=== PATIENT | male | born 2000 | race Caucasian/White ===

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

== ENCOUNTER 2020-03-27 16:41 | Observation (INO) ==
--- NOTE | 2020-03-27 16:53 | Emergency Department Note ---
Impression & Plan Acute appendicitis, Abdominal pain ED Provider Note NAME: CHRISTY WALKER AGE: 19 SEX: M : 2000 ARRIVES VIA: Walk-In INFORMANT: Patient ED PROVIDER(S): Anthony Cali DO CHIEF COMPLAINT: Right mid abdominal pain HPI: Patient is a 19-year-old male who presents the ER for right mid abdominal pain which started this past Monday. He notes it has been gradually improving. Initially he did not want to eat or drink with it. Last bowel movement was within the past 24 hours. No previous abdominal surgeries. He denies any dysuria urgency or frequency. Movement makes the pain worse as well as palpation. Pain is a 2 out of 10. He was referred in by his physician. Denies any recent trauma. No other exacerbating or remitting factors. ROS: See above HPI for pertinent positives & negatives. A total of 10 systems reviewed and were otherwise negative. PAST MEDICAL HISTORY:See Below PAST SURGICAL HISTORY:See Below FAMILY HISTORY:See Below SOCIAL HISTORY:See Below HOME MEDICATIONS:See Below ALLERGIES:See Below VITALS:See Below PHYSICAL EXAMINATION: GENERAL: Sitting up in chair, alert, well appearing, well nourished, no distress, non-toxic EYE EXAM: normal conjunctiva. OROPHARYNX: no exudate, no erythema, lips, buccal mucosa, and tongue normal and mucous membranes are moist NECK: supple, no nuchal rigidity, no adenopathy, non-tender LUNGS: Clear to auscultation. Normal chest wall mechanics HEART: no murmurs, S1 normal and S2 normal ABDOMEN: abdomen soft, mild right mid abdominal pain, normo-active bowel sounds, no masses, no rebound or guarding. BACK: Back is symmetrical on inspection and there is no deformity, no midline tenderness, no CVA tenderness. SKIN: no rashes and no bruising UPPER EXTREMITIES: upper extremities are grossly normal. LOWER EXTREMITIES: No pitting edema. NEURO EXAM: Normal sensorium, cranial nerves II-XII grossly intact, normal speech, no gross weakness of arms, no gross weakness of legs. MEDICAL DECISION MAKING: Patient is a 19-year-old male referred in for right mid abdominal pain which is been present since this past Monday. IV was established blood work was obtaine d. Labs show no significant leukocytosis or anemia. BMP along with LFTs bilirubin and lipase was unremarkable. UA was negative. CT abdomen pelvis shows acute appendicitis. Patient was updated bedside. He was given IV fluids. He was given IV morphine and Zofran and cefoxitin. Discussed with general surgery and patient was admitted for acute appendicitis. Triage Nursing notes reviewed. Prior medical records reviewed Vital Signs: reviewed and remarkable for no significant abnormalities Differential diagnosis: Differential diagnoses includes but is not limited to gastritis, peptic ulcer disease, GERD, gallbladder disease, pancreatitis, small bowel obstruction, acute coronary syndrome, pericarditis, ischemic bowel, irritable bowel disease, irritable bowel syndrome, appendicitis, diverticulitis, malignancy, hernia, urinary tract infection, torsion, perforation, trauma, infectious. ER treatment provided: See below Diagnostics interpreted by me: ECG: none Cardiac Monitoring: An order was placed for continuous cardiac monitoring. The monitor shows a rate of 74 with sinus rhythm. Laboratory studies: As stated above and show below. Imaging studies: CT abdomen pelvis shows acute appendicitis Consultation(s): Discussed with Dr. Moisés Ceballos from general surgery who evaluated the patient and admitted the patient. ED COURSE: Procedures: none Critical Care: None Past Med/Surg History Surgical History Mandible fracture Tibia/fibula fracture Social History Smoking Status: Never smoker Feels Safe at Home: Yes Allergies Allergies Allergy/AdvReac Type Severity Reaction Status Date / Time No Known Allergies Allergy Unverified 03/27/20 20:33 Home Meds Home Medications Medication Instructions Recorded Confirmed Medical Marijuana 0 puff INHALATION UD PRN 03/27/20 03/27/20 Otc Prilosec 20 mg PO DAILY PRN 03/27/20 03/27/20 Results & Data (ED) Vital Signs Vital Signs - 24 hr 03/27/20 16:42 03/27/20 18:07 03/27/20 20:00 Temperature 37 C Temperature Source Oral Pulse Rate 90 Pulse Rate [Right Finger] 56 L Respiratory Rate 18 15 Respiratory Effort / Characteristics Non-Labored Respiratory Depth Normal Blood Pressure 129/78 Blood Pressure [Right Arm] 136/89 Blood Pressure Mean 95 Blood Pressure Mean [Right Arm] 104 Pulse Oximetry 97 96 97 Oxygen Delivery Method Room Air Room Air Room Air Sepsis Recent Fever Within 48 Hours No Sepsis New/Unexplained Change in Mental Status No Sepsis Action Taken by Nursing No Action Required 03/27/20 20:10 03/27/20 21:34 03/27/20 22:20 Temperature Temperature Source Pulse Rate Pulse Rate [Right Finger] 80 72 60 Respiratory Rate 16 20 20 Respiratory Effort / Characteristics Non-Labored Spontaneous Respiratory Depth Normal Blood Pressure Blood Pressure [Right Arm] 130/81 151/96 H 130/84 Blood Pressure Mean Blood Pressure Mean [Right Arm] 97 114 99 Pulse Oximetry 97 100 98 Oxygen Delivery Method Room Air Room Air Room Air Sepsis Recent Fever Within 48 Hours Sepsis New/Unexplained Change in Mental Status Sepsis Action Taken by Nursing 03/27/20 22:43 Temperature Temperature Source Pulse Rate Pulse Rate [Right Finger] 72 Respiratory Rate 20 Respiratory Effort / Characteristics Respiratory Depth Blood Pressure Blood Pressure [Right Arm] 127/78 Blood Pressure Mean Blood Pressure Mean [Right Arm] 94 Pulse Oximetry 98 Oxygen Delivery Method Room Air Sepsis Recent Fever Within 48 Hours Sepsis New/Unexplained Change in Mental Status Sepsis Action Taken by Nursing Laboratory Data Result diagrams: 03/27/20 17:45 03/27/20 17:45 Lab Results 03/27/20 03/27/20 03/27/20 Range/Units 17:45 17:45 18:45 WBC 7.83 (4.8-10.8) K/uL RBC 5.00 (4.7-6.1) M/uL Hgb 14.8 (14.0-18.0) g/dL Hct 44.2 (42-52) % MCV 88.4 (80-100) fL MCH 29.6 (25-34) pg MCHC 33.5 (32-36) g/dL RDW Std Deviation 43.2 (36.4-46.3) fL RDW Coeff of Martine 13.3 (11.5-14.5) % Plt Count 176 (130-400) K/uL MPV 10.6 H (7.4-10.4) fL Immature Gran % (Auto) 0.3 % Neut % (Auto) 63.3 % Lymph % (Auto) 27.8 % [place] % (Auto) 7.5 % Eos % (Auto) 1.0 % Baso % (Auto) 0.1 % Neut # (Auto) 4.95 (1.4-6.5) K/uL Lymph # (Auto) 2.18 (1.2-3.4) K/uL [place] # (Auto) 0.59 (0.11-0.59) K/uL Eos # (Auto) 0.08 (0-0.5) K/uL Baso # (Auto) 0.01 (0-0.2) K/uL Immature Gran # (Auto) 0.02 (0.00-0.02) K/uL Sodium 138 (136-145) mmol/L Potassium 3.8 (3.5-5.1) mmol/L Chloride 103 (98-107) mmol/L Carbon Dioxide 30 (21-32) mmol/L Anion Gap 5.0 (3-11) BUN 15 (7-18) mg/dl Creatinine 1.11 (0.6-1.4) mg/dl Est Cr Clr Drug Dosing 95.7 ml/min Est GFR ( Amer) 109.4 Est GFR (Non-Af Amer) 94.4 BUN/Creatinine Ratio 13.3 (10-20) Glucose 84 (70-99) mg/dl Calcium 9.7 (8.5-10.1) mg/dl Total Bilirubin 0.5 (0.2-1) mg/dl AST 23 (15-37) U/L ALT 35 (12-78) U/L Alkaline Phosphatase 55 (45-117) U/L Total Protein 8.3 H (6.4-8.2) gm/dl Albumin 4.5 (3.4-5.0) gm/dl Globulin 3.8 (2.5-4.0) gm/dl Albumin/Globulin Ratio 1.2 (0.9-2) Lipase 108 (73-393) U/L Urine Color Yellow Urine Appearance Clear (Clear) Urine pH 6.5 (4.5-7.5) Ur Specific [place] 1.022 (1.000-1.030) Urine Protein Negative (Negative) Urine Glucose (UA) Negative (Negative) Urine Ketones Negative (Negative) Urine Blood Negative (Negative) Urine Nitrite Negative (Negative) Urine Bilirubin Negative (Negative) Urine Urobilinogen Negative (Negative) Ur Leukocyte Esterase Negative (Negative) Administered Medications Discontinued Medications Sodium Chloride (Nss 1000ml) 1,000 mls @ 999 mls/hr IV .Q1H1M ONE Stop: 03/27/20 17:55 Last Admin: 03/27/20 18:43 Dose: Not Given Documented by: [id number] Cefoxitin Sodium (Mefoxin) 2,000 mg in 60 mls @ 100 mls/hr IV NOW STA Stop: 03/27/20 21:33 Last Infusion: 03/27/20 22:09 Dose: 0 mls/hr Documented by: [id number] Admin: 03/27/20 21:32 Dose: 100 mls/hr Documented by: [id number] Ioversol (Optiray 320 100ml) 93 ml IV ONCE ONE Stop: 03/27/20 20:44 Last Admin: 03/27/20 20:43 Dose: 93 ml Documented by: [id number] Morphine Sulfate (Morphine Sulfate) 4 mg IV NOW STA Stop: 03/27/20 21:50 Last Admin: 03/27/20 21:53 Dose: 4 mg Documented by: [id number] Ondansetron HCl (Zofran) 4 mg IV NOW STA Stop: 03/27/20 21:50 Last Admin: 03/27/20 21:52 Dose: 4 mg Documented by: [id number] Discharge Plan Visit Data *Final* Discharge Date/Time: 03/27/20 22:45 Chief Complaint: Abdominal Pain Stated Complaint: Abdominal Pain ED Provider: Anthony Cali Discharge Problem: Acute appendicitis, Abdominal pain Patient Disposition: Still a Patient Discharge Instructions Interventions: ED Discharge Assessment Last Done: 03/27/20 22:45 Discharge Problem: Acute appendicitis Qualifiers: Acute appendicitis type: unspecified acute appendicitis type Qualified Code(s): K35.80 - Unspecified acute appendicitis Abdominal pain Qualifiers: Abdominal location: unspecified location Qualified Code(s): R10.9 - Unspecified abdominal pain
[2020-03-27] MEDS ORDERED: SODIUM CHLORIDE 0.9% 1000ML 1,000 ML IV ONE (16:55)
[2020-03-27 18:01] LABS: Basophils # (auto) 0.01 K/uL (0-0.2); Basophils % (auto) 0.1 %; Eosinophils # (auto) 0.08 K/uL (0-0.5); Hematocrit (blood only) 44.2 % (42-52); Hemoglobin 14.8 g/dL (14.0-18.0); Immature Granulocytes # (auto) 0.02 K/uL (0.00-0.02); Immature Granulocytes % (auto) 0.3 %; Lymphocytes # (auto) 2.18 K/uL (1.2-3.4); Lymphocytes % (auto) 27.8 %; Mean Corpuscular Hemoglobin 29.6 pg (25-34); Mean Corpuscular Hgb Conc 33.5 g/dL (32-36); Mean Corpuscular Volume 88.4 fL (80-100); Mean Platelet Volume 10.6 fL (7.4-10.4); Monocytes # (auto) 0.59 K/uL (0.11-0.59); Monocytes % (auto) 7.5 %; Neutrophils # (auto) 4.95 K/uL (1.4-6.5); Neutrophils % (auto) 63.3 %; Platelet Count 176 K/uL (130-400); RDW Coefficient of Variation 13.3 % (11.5-14.5); RDW Standard Deviation 43.2 fL (36.4-46.3); White Blood Count 7.83 K/uL (4.8-10.8)
[2020-03-27 18:17] LABS: Albumin Level 4.5 gm/dl (3.4-5.0); BUN Creatinine Ratio 13.3 (10-20); Calcium 9.7 mg/dl (8.5-10.1); Creatinine Clr Calc Pharmacy 95.7 ml/min; Est GFR (African American) 109.4; Est GFR (Non-African American) 94.4; Potassium 3.8 mmol/L (3.5-5.1)
[2020-03-27 18:20] LABS: Albumin Globulin Ratio 1.2 (0.9-2); Bilirubin,Total 0.5 mg/dl (0.2-1); Globulin 3.8 gm/dl (2.5-4.0); Total Protein 8.3 gm/dl (6.4-8.2)
[2020-03-27 20:33] LABS: Appearance Urine Clear (Clear); Bilirubin Urine Negative (Negative); Blood Urine Negative (Negative); Color Urine Yellow; Glucose Urine UA Negative (Negative); Ketones Urine Negative (Negative); Leukocyte Esterase Urine Negative (Negative); Nitrite Urine Negative (Negative); Protein Urine Negative (Negative); Specific Gravity Urine 1.022 (1.000-1.030); Urobilinogen Urine Negative (Negative); pH Urine 6.5 (4.5-7.5)
[2020-03-27] MEDS ORDERED: IOVERSOL 100ml IV ONE (20:43)
--- NOTE | 2020-03-27 20:56 | CT Scan Report ---
CT abd pelvis oral and IV con CLINICAL HISTORY: Right-sided abdominal pain COMPARISON STUDY: March 2017 TECHNIQUE: Patient was scanned following administration of dilute oral contrast, and in a dynamic hel ical fashion during intravenous administration of 94 cc of Optiray 320. A dose lowering technique was utilized adhering to the principles of ALARA. CT DOSE: 255.92 mGy.cm FINDINGS: Lower chest: The heart is normal in size and configuration, without pericardial effusion. The lung ba ses and pleural spaces are clear. Liver: The contrast-enhanced liver is normal in size, contour, and attenuation. There is no intrahepa tic biliary ductal dilatation. The hepatic veins and portal veins are patent. Gallbladder: Unremarkable. Spleen: Normal in size and attenuation. Pancreas: Unremarkable. Adrenal glands: Unremarkable. Kidneys: There is symmetric renal cortical enhancement. The kidneys are normal in size without hydron ephrosis. Bowel: There are no transition zones indicate bowel obstruction. There is no evidence of acute divert iculitis. There is a mildly dilated fluid-filled appendix measuring 8 mm with minimal periappendiceal inflammatory change. Given history of right-sided abdominal pain, the findings are indicative of an early acute appendicitis Peritoneum: There is no intraperitoneal free air or abdominal ascites. Vasculature: The abdominal aorta is normal in course and caliber. Adenopathy: None. Pelvic viscera: There is mild bladder wall thickening. Skeletal structures: No destructive osseous lesions are seen. IMPRESSION: 1. Mildly dilated fluid-filled appendix measuring 8 mm with minimal periappendiceal inflammatory cr ge. Given the history right-sided abdominal pain, the findings are indicative of an early acute appen dicitis. ACT 112: Negative or not required by law. Electronically signed by: Kavin Gillespie M.D. 03/27/2020 8:55 PM
[2020-03-27] MEDS ORDERED: cefOXitin 2,000 MG/60 ML BAG IV STA (20:58)
[2020-03-27] MEDS ORDERED: MoRPHine SULFATE 4 MG/ML 1 ML CARP\\VIAL IV STA (21:49)
[2020-03-27] MEDS ORDERED: ONDANSETRON INJ 2 MG/ML 2 ML VIAL IV STA (21:49)
--- NOTE | 2020-03-27 22:24 | History & Physical Report ---
Date of Service March 27, 2020 Assessment & Plan (1) Appendicitis: This patient's history, physical findings and CT findings are consistent with appendicitis. I have discussed with him the options of antibiotics versus a laparoscopic appendectomy. I explained the possible need to convert to an open procedure. I explained the possible complications associated with those procedures. We discussed the pros and cons of antibiotic therapy. The patient wishes to go ahead with surgery and has signed a consent form. History of Present Illness Chief Complaint: Right lower quadrant abdominal pain with nausea Primary Care Provider: Jorge Reed This is a 19-year-old male who began to have discomfort centrally in his abdomen about 3 days ago. It was mild and a dull ache-like sensation. He has had some nausea but no vomiting. The pain became less severe 2 days ago and yesterday MORNING it seemed to migrate to the right lower quadrant where it has been located for the last 10 to 12 hours. It is exacerbated by motion. He has not had any diarrhea or constipation. He denies melena hematochezia. He has had no dysuria or hematuria. He has not had fever. Allergies Allergy/AdvReac Type Severity Reaction Status Date / Time No Known Allergies Allergy Unverified 03/27/20 20:33 Home Medications Home Medications Medication Instructions Recorded Confirmed Type Medical Marijuana 0 puff INHALATION UD PRN 03/27/20 03/27/20 History Otc Prilosec 20 mg PO DAILY PRN 03/27/20 03/27/20 History Past Med/Surg History Surgical History (Updated 03/27/20 @ 22:29 by Moisés Ceballos MD) Mandible fracture Tibia/fibula fracture Social History Smoking Status: Never smoker Feels Safe at Home: Yes Review of Systems Review of Systems: All systems reviewed & are unremarkable except as noted in HPI & below Physical Exam Constitutional: well developed and well nourished Neck: trachea midline Respiratory: normal respiratory effort, lungs clear to auscultation Cardiovascular: Rate/Rhythm: regular rate and regular rhythm Gastrointestinal (Abdomen): Percussion/Palpation: + abdomen tender (Mild right lower quadrant) and abdomen soft; no abdominal mass Musculoskeletal: no cyanosis or clubbing, extremities motor strength 5/5 Skin: no rashes, warm and dry Results & Data Results & Data ([facility]) Vital Signs (Past 12 Hours) Vital Signs Temp Pulse Pulse Resp BP BP Pulse Ox 03/27/20 21:34 72 20 151/96 H 100 03/27/20 20:10 80 16 130/81 97 03/27/20 18:07 56 L 15 136/89 96 03/27/20 16:42 37 C 90 18 129/78 97 Laboratory Results 03/27/20 03/27/20 03/27/20 Range/Units 18:45 17:45 17:45 WBC 7.83 (4.8-10.8) K/uL RBC 5.00 (4.7-6.1) M/uL Hgb 14.8 (14.0-18.0) g/dL Hct 44.2 (42-52) % MCV 88.4 (80-100) fL MCH 29.6 (25-34) pg MCHC 33.5 (32-36) g/dL RDW Std Deviation 43.2 (36.4-46.3) fL RDW Coeff of Martine 13.3 (11.5-14.5) % Plt Count 176 (130-400) K/uL MPV 10.6 H (7.4-10.4) fL Immature Gran % (Auto) 0.3 % Neut % (Auto) 63.3 % Lymph % (Auto) 27.8 % [place] % (Auto) 7.5 % Eos % (Auto) 1.0 % Baso % (Auto) 0.1 % Neut # (Auto) 4.95 (1.4-6.5) K/uL Lymph # (Auto) 2.18 (1.2-3.4) K/uL [place] # (Auto) 0.59 (0.11-0.59) K/uL Eos # (Auto) 0.08 (0-0.5) K/uL Baso # (Auto) 0.01 (0-0.2) K/uL Immature Gran # (Auto) 0.02 (0.00-0.02) K/uL Sodium 138 (136-145) mmol/L Potassium 3.8 (3.5-5.1) mmol/L Chloride 103 (98-107) mmol/L Carbon Dioxide 30 (21-32) mmol/L Anion Gap 5.0 (3-11) BUN 15 (7-18) mg/dl Creatinine 1.11 (0.6-1.4) mg/dl Est Cr Clr Drug Dosing 95.7 ml/min Est GFR ( Amer) 109.4 Est GFR (Non-Af Amer) 94.4 BUN/Creatinine Ratio 13.3 (10-20) Glucose 84 (70-99) mg/dl Calcium 9.7 (8.5-10.1) mg/dl Total Bilirubin 0.5 (0.2-1) mg/dl AST 23 (15-37) U/L ALT 35 (12-78) U/L Alkaline Phosphatase 55 (45-117) U/L Total Protein 8.3 H (6.4-8.2) gm/dl Albumin 4.5 (3.4-5.0) gm/dl Globulin 3.8 (2.5-4.0) gm/dl Albumin/Globulin Ratio 1.2 (0.9-2) Lipase 108 (73-393) U/L Urine Color Yellow Urine Appearance Clear (Clear) Urine pH 6.5 (4.5-7.5) Ur Specific [place] 1.022 (1.000-1.030) Urine Protein Negative (Negative) Urine Glucose (UA) Negative (Negative) Urine Ketones Negative (Negative) Urine Blood Negative (Negative) Urine Nitrite Negative (Negative) Urine Bilirubin Negative (Negative) Urine Urobilinogen Negative (Negative) Ur Leukocyte Esterase Negative (Negative) Diagnostic Findings CT abd pelvis oral and IV con CLINICAL HISTORY: Right-sided abdominal pain COMPARISON STUDY: March 2017 TECHNIQUE: Patient was scanned following administration of dilute oral contrast, and in a dynamic helical fashion during intravenous administration of 94 cc of Optiray 320. A dose lowering technique was utilized adhering to the principles of ALARA. CT DOSE: 255.92 mGy.cm FINDINGS: Lower chest: The heart is normal in size and configuration, without pericardial effusion. The lung bases and pleural spaces are clear. Liver: The contrast-enhanced liver is normal in size, contour, and attenuation. There is no intrahepatic biliary ductal dilatation. The hepatic veins and portal veins are patent. Gallbladder: Unremarkable. Spleen: Normal in size and attenuation. Pancreas: Unremarkable. Adrenal glands: Unremarkable. Kidneys: There is symmetric renal cortical enhancement. The kidneys are normal in size without hydronephrosis. Bowel: There are no transition zones indicate bowel obstruction. There is no evidence of acute diverticulitis. There is a mildly dilated fluid-filled appendix measuring 8 mm with minimal periappendiceal inflammatory change. Given history of right-sided abdominal pain, the findings are indicative of an early acute appendicitis Peritoneum: There is no intraperitoneal free air or abdominal ascites. Vasculature: The abdominal aorta is normal in course and caliber. Adenopathy: None. Pelvic viscera: There is mild bladder wall thickening. Skeletal structures: No destructive osseous lesions are seen. IMPRESSION: 1. Mildly dilated fluid-filled appendix measuring 8 mm with minimal periappendiceal inflammatory change. Given the history right-sided abdominal pain, the findings are indicative of an early acute appendicitis.
[2020-03-27] MEDS ORDERED: CEFAZOLIN 250 MG/ML 1 GM VIAL ONE (22:43)
[2020-03-27] MEDS ORDERED: HEPARIN (PORCINE) 1000 UNIT/ML 10 ML (CATH LAB USE ONLY) ONE (22:43)
[2020-03-27] MEDS ORDERED: BUPIVACAINE 0.5 % 5 MG/1 ML MPF 30ML VIAL ONE (22:43)
--- NOTE | 2020-03-27 23:06 | Anesthesiology Consultation ---
Date of Service March 27, 2020 Assessment & Plan ASA [id number] Proposed Anesthesia Anesthesia Type: General Risk / Benefits Reviewed With: PT / POA / Parent / Guardian, Accepts Plan and Informed Consent Obtained History Surgery Operation Date: 03/27/20 23:00 Proposed Procedures p Laparoscopic Appendectomy - Moisés Ceballos MD Height/Weight Height: 5 ft 11 in Weight: 64.3 kg Allergies Allergy/AdvReac Type Severity Reaction Status Date / Time No Known Allergies Allergy Unverified 03/27/20 20:33 Medications Home Medications Medication Instructions Recorded Confirmed Last Taken Medical Marijuana 0 puff INHALATION UD PRN 03/27/20 03/27/20 Unknown Otc Prilosec 20 mg PO DAILY PRN 03/27/20 03/27/20 Unknown NPO Date Last Intake of Fluids: 03/27/20 Time Last Intake of Fluids: 19:00 Date Last Intake of Solids: 03/27/20 Time Last Intake of Solids: 12:00 Exercise / Class Metabolic Activity II 4-5 Yardwork/Stairs/Walk up hill Past Surgical History Surgical History Mandible fracture Tibia/fibula fracture Past Anesthesia History No Hx of Anesthesia Complications and No Family Hx of Anesthesia Complications History of PONV No Hx of PONV and No Hx of Motion Sickness Social History Smoking Status: Never smoker Review of Systems denies fever/cough/ colds/ chest pain/ SOB/ BECKIE Constitutional: no fever and no chills Respiratory: no cough and no dyspnea denies B[place]KIE Cardiovascular: no chest pain and no dyspnea on exertion Physical Exam Vital Signs Last Vital Signs Temp 37 C 03/27/20 16:42 Pulse 72 03/27/20 22:43 Resp 20 03/27/20 22:43 BP 127/78 03/27/20 22:43 Pulse Ox 98 03/27/20 22:43 ENMT Mouth: no TMJ abnormality and no dentition abnormality Thyromental Distance: > or= 3.5 Finger Breadths Mallampati Class: II Neck neck extension not limited Respiratory normal respiratory effort; no respiratory distress Auscultation: lungs clear to auscultation bilaterally Cardiovascular Rate/Rhythm: regular rate and regular rhythm Neurologic moves all extremities Psychiatric Orientation: alert and oriented x 3 Testing Laboratory Results 03/27/20 17:45 03/27/20 17:45 Urine Color Yellow 03/27/20 18:45 Urine Appearance Clear (Clear) 03/27/20 18:45 Urine pH 6.5 (4.5-7.5) 03/27/20 18:45 Ur Specific [place] 1.022 (1.000-1.030) 03/27/20 18:45 Urine Protein Negative (Negative) 03/27/20 18:45 Urine Glucose (UA) Negative (Negative) 03/27/20 18:45 Urine Ketones Negative (Negative) 03/27/20 18:45 Urine Nitrite Negative (Negative) 03/27/20 18:45 Ur Leukocyte Esterase Negative (Negative) 03/27/20 18:45
[2020-03-27] MEDS ORDERED: PROPOFOL IV EMULSION 10 MG/ML 20 ML VIAL IV ONE (23:08)
[2020-03-27] MEDS ORDERED: KETOROLAC 30 MG/ML VIAL ONE (23:08)
[2020-03-27] MEDS ORDERED: DEXAMETHASONE SOD INJ 4 MG/ML VIAL ONE (23:08)
[2020-03-27] MEDS ORDERED: SUCCINYLCHOLINE 100MG/5ML SYR IV ONE (23:08)
[2020-03-27] MEDS ORDERED: fentaNYL citrate 100 MCG/2 ML VIAL ONE ×2 (23:09→23:52)
[2020-03-27] MEDS ORDERED: ePHEDrine sulfate 50 MG/ML AMP IV PRN (23:17)
[2020-03-27] MEDS ORDERED: fentaNYL citrate 100 MCG/2 ML VIAL IV PRN (23:17)
[2020-03-27] MEDS ORDERED: ONDANSETRON INJ 2 MG/ML 2 ML VIAL IV PRN (23:17)
[2020-03-27] MEDS ORDERED: HYDROmorphone INJ 2 MG/ML SYR/VIAL IV PRN (23:17)
[2020-03-27] MEDS ORDERED: ATROPINE SULFATE 0.1 MG/ML 10ML SYR IV PRN (23:17)
[2020-03-27] MEDS ORDERED: NEOSTIGMINE METHYLSULFATE 5 MG/5 ML SYR ONE (23:56)
[2020-03-27] MEDS ORDERED: ROCURONIUM BROMID 50MG/5ML SYR ONE (23:56)
[2020-03-27] MEDS ORDERED: GLYCOPYRROLATE 0.2 MG/ML VIAL ONE ×2 (23:56)
[2020-03-28] MEDS ORDERED: ATROPINE SULFATE 1MG/2.5ML SYR ONE (00:29)
--- NOTE | 2020-03-28 00:39 | Post Operative Brief Note ---
Immediate Post Op Note v1 Date of Surgery March 28, 2020 Pre & Post Diagnosis Operation Date: 03/27/20 23:00 Pre-Op Diagnosis: Acute Appendicitis Post-Op Diagnosis: Acute Appendicitis I identified the patient and participated in the time-out.: Yes Procedure Operation Date: 03/27/20 23:00 Actual Procedures p Laparoscopic Appendectomy(Not Applicable) - Moisés Ceballos MD Surgeon Moisés Ceballos MD Dealership General Manager None Estimated Blood Loss 5 Findings Consistent with Post-Op Diagnosis
[2020-03-28] MEDS ORDERED: ONDANSETRON INJ 2 MG/ML 2 ML VIAL IV PRN (01:56)
[2020-03-28] MEDS ORDERED: MoRPHine SULFATE 4 MG/ML 1 ML CARP\\VIAL IV PRN (01:56)
[2020-03-28] MEDS ORDERED: OXYCODONE/ACETAMINOPHEN 5mg/325mg TAB PO PRN (01:56)
[2020-03-28] MEDS ORDERED: MoRPHine SULFATE 4 MG/ML 1 ML CARP\\VIAL ONE (01:59)
[2020-03-28] MEDS ORDERED: D5W AND 1/2NSS + 20MEQ KCL 20 MEQ/1,000 ML BAG IV SCH (02:30)
--- NOTE | 2020-03-28 03:33 | Anesthesiology Progress Note ---
Date of Service March 28, 2020 Anesthesia Post Procedure Vital Signs Vital Signs: Temp Pulse Pulse Resp BP BP Pulse Ox 03/28/20 02:45 36.7 C 75 16 131/79 97 03/28/20 02:15 36.6 C 65 16 127/74 92 03/28/20 01:45 36.5 C 59 L 16 131/81 96 03/28/20 01:29 37 C 68 20 95 03/28/20 01:16 58 L 20 130/78 99 03/28/20 01:03 36.5 C 62 18 126/72 97 03/27/20 22:43 72 20 127/78 98 03/27/20 22:20 60 20 130/84 98 03/27/20 21:34 72 20 151/96 H 100 03/27/20 20:10 80 16 130/81 97 03/27/20 20:00 97 03/27/20 18:07 56 L 15 136/89 96 03/27/20 16:42 37 C 90 18 129/78 97 Pain Intensity Abdomen: Pain Intensity: 4 Transfer of Care Handoff Completed per policy Notes Mental Status: alert / awake / arousable and participated in evaluation Patient Amnestic to Procedure: Yes Nausea / Vomiting: adequately controlled Pain: adequately controlled Airway Patency, RR, SpO2: stable & adequate BP & HR: stable & adequate Hydration State: stable & adequate Anesthetic Complications: no major complications apparent and Pt Satisfied with anesthetic care
--- NOTE | 2020-03-28 13:05 | Surgery Progress Note ---
Date of Service March 28, 2020 Assessment & Plan (1) Acute appendicitis: Postoperative day #021 status post laparoscopic appendectomy Doing well Tolerating diet Can discharge to home Discussed activity restrictions Subjective Postoperative day 01 status post laparoscopic appendectomy Tolerated diet Has mild discomfort Denies nausea and vomiting Physical Exam Gastrointestinal (Abdomen): Inspection/Auscultation: normal bowel sounds and + abdominal surgical incision (Clean, dry and intact); abdomen not distended Percussion/Palpation: + abdomen tender (Incisional only) and abdomen soft Results & Data Vital Signs (Past 12 Hours) Vital Signs Temp Pulse Resp BP Pulse Ox 03/28/20 11:20 36.9 C 55 L 16 133/75 98 03/28/20 07:18 36.6 C 56 L 16 121/73 99 03/28/20 04:45 36.7 C 65 16 119/67 100 03/28/20 03:45 36.5 C 60 16 122/72 96 03/28/20 02:45 36.7 C 75 16 131/79 97 03/28/20 02:15 36.6 C 65 16 127/74 92 03/28/20 01:45 36.5 C 59 L 16 131/81 96 03/28/20 01:29 37 C 68 20 95 03/28/20 01:16 58 L 20 130/78 99 (1) Acute appendicitis Acute appendicitis type: unspecified acute appendicitis type Qualified Code(s): K35.80 - Unspecified acute appendicitis
--- NOTE | 2020-03-28 13:12 | Discharge Summary ---
Date of Service March 28, 2020 Admission HPI Per Admitting Provider This is a 19-year-old male who began to have discomfort centrally in his abdomen about 3 days ago. It was mild and a dull ache-like sensation. He has had some nausea but no vomiting. The pain became less severe 2 days ago and yesterday MORNING it seemed to migrate to the right lower quadrant where it has been located for the last 10 to 12 hours. It is exacerbated by motion. He has not had any diarrhea or constipation. He denies melena hematochezia. He has had no dysuria or hematuria. He has not had fever. Admission Exam Per Admitting Provider Constitutional: well developed and well nourished Neck: trachea midline Respiratory: normal respiratory effort, lungs clear to auscultation Cardiovascular: Rate/Rhythm: regular rate and regular rhythm Gastrointestinal (Abdomen): Percussion/Palpation: + abdomen tender (Mild right lower quadrant) and abdomen soft; no abdominal mass Musculoskeletal: no cyanosis or clubbing, extremities motor strength 5/5 Skin: no rashes, warm and dry Principal Diagnosis Acute appendicitis Discharge Exam Constitutional no acute distress Gastrointestinal (Abdomen) Inspection/Auscultation: normal bowel sounds and + abdominal surgical incision (All are clean, dry and intact); abdomen not distended Percussion/Palpation: + abdomen tender (Incisional only) and abdomen soft Discharge Data Allergies Allergy/AdvReac Type Severity Reaction Status Date / Time No Known Allergies Allergy Unverified 03/27/20 20:33 Consultations 03/27/20 21:30 ED Decision to Admit Stat Procedures Performed Operation Date: 03/27/20 23:00 Actual Procedures p Laparoscopic Appendectomy(Not Applicable) - Moisés Ceballos MD Ordered Studies 03/27/20 16:55 CT abd pelvis oral and IV con Stat Hospital Course (1) Acute appendicitis: The patient was taken immediately to the operating room and underwent an uncomplicated laparoscopic cholecystectomy. There is no evidence of perforation or abscess. Postoperative day 0-1 he was tolerating regular diet. He was able to ambulate. He is having minimal pain. He had no nausea or vomiting. Pathology is pending. Total Time Total Time Spent Total Time Spent (In Minutes): 10 Discharge Plan Discharge Items Patient Disposition: Home - Self-Care Reason For Visit: APPENDICITIS Discharge Diagnosis: Acute appendicitis Activity: As commented below Non-emergency contact: Surgeon Call non-emergency contact if: your temperature is above 101.5, your wound has increased redness and your wound has increased drainage Follow-up/Referrals: Jorge Reed [Primary Care Provider] - Diet: Regular Addtl Attending Provider Instructions: Post-Surgical ~Discharge Instructions Activity Recommendations: - lifting limitation: (10 pounds for 2 weeks), - exercise/sex/sports limit: (nonstrenuous for 2 weeks), - driving or machine use limit: (none for 1 week), - Shower/bathe limit: (may shower beginning tomorrow) Diet: - Resume previous diet SPECIAL CARE INSTRUCTIONS: - May shower in 24 hours. Let water run over area and pat dry. - Leave steri strips on for one week. - Call the surgeon's office with any questions or concerns - - (ex. temperature higher than 101 degrees F, excessive bleeding or pain). MEDICATIONS: - Resume previous medications unless instructed otherwise by your surgeon. - Ibuprofen 600 mg every 6 hours with food as needed - Percocet 1 every 4 hours, as needed for pain -Tylenol 650 mg every 6 hours as needed FOLLOW UP VISIT: - If not already scheduled, please call the office to schedule a two week follow-up appointment. Office number Pending Studies at Discharge: Yes Studies:: Pathology Stand-Alone Forms: My [email or web address], Smoking Cessation Medications and DC Order Prescriptions: New oxycodone-acetaminophen [Percocet] 5-325 mg Tablet 1 tab PO Q4H PRN (Reason: pain) Qty: 5 RF: 0 Continued Medical Marijuana 0 puff inhalation UD PRN (Reason: Insomnia) RF: 0 Otc Prilosec 20 mg PO DAILY PRN (Reason: Acid Reflux) RF: 0 Discharge Orders: Discharge Order (Routine); Ordered 03/28/20 Ordered By: Moisés Ceballos Admission Data Admit Date/Time: 03/28/20 01:51 Attending Provider: Moisés Ceballos Admit Provider: Moisés Ceballos Primary Care Provider: Jorge Reed Other Providers: Moisés Ceballos
--- NOTE | 2020-03-30 07:59 | Operative Report (OR) ---
DATE OF OPERATION: 03/28/2020 PREOPERATIVE DIAGNOSIS: Appendicitis. POSTOPERATIVE DIAGNOSIS: Appendicitis. PROCEDURE: Laparoscopic appendectomy. SURGEON: Moisés Ceballos MD FINDINGS: The appendix was elongated. The distal two-thirds was hyperemic and firm. The appendix was densely adherent to the lateral abdominal wall and to the posterior abdominal wall. There was no evidence of perforation or abscess. The visible bowel appeared normal. TECHNIQUE: The patient was given a general anesthetic and the area was prepped and draped in the usual sterile fashion. Transverse incision was planned below the umbilicus and the skin and subcutaneous tissue were anesthetized with 0.5% Marcaine. Skin incision was made, carried down through the subcutaneous tissue to the fascia which was grasped with 2 Yane clamps and incised between. The peritoneum was identified, incised and introducer was placed bluntly. The abdomen was then insufflated to a pressure of 15 mmHg with carbon dioxide. The lower midline introducer site was chosen and the skin was anesthetized with 0.5% Marcaine. Skin incision was made, was carried down through the subcutaneous tissue and the introducer was placed under direct vision. Traction was placed on the cecum medially and the appendix was seen lying lateral to that and extending superiorly along the right pericolic gutter. The left lower quadrant introducer was placed under direct vision after the skin was anesthetized and incision was made. I grasped the tip of the appendix and elevate it and had to divide the dense attachments to the lateral and posterior abdominal wall using blunt and cautery dissection where appropriate and then worked down towards the base of the appendix for the distal one third. At that point, I had it elevated away from the bowel wall and away from the lateral abdominal wall. There were some additional lateral attachments of the base of the appendix that were divided allowing me to completely elevate it. I was able to establish a plane between the mesoappendix and the appendix at the base and the mesoappendix was divided using the PADMA stapler. The appendix was amputated using the Endo-PADMA stapler and the appendix was placed into an Endobag and brought out through the left lower quadrant introducer site. That introducer was replaced. There was a small amount of oozing from the staple line on the mesentery which was easily controlled with cautery. The other staple line was inspected and there was no bleeding. The area of dissection was inspected for oozing and none was seen. The area was then irrigated. The irrigation removed. Any irrigation that entered the pelvis or the right upper quadrant was removed. The gas was allowed to escape and the introducers were removed. The fascia of the umbilical and left lower quadrant introducer sites was closed with interrupted 0 Vicryl and skin of all the incisions was closed with 4-0 Monocryl in either an interrupted or running subcuticular fashion. The skin was cleansed, dried, benzoin placed, Steri-Strips applied. Estimated blood loss was 5 mL. Sponge, needle and instrument counts were correct prior to closure. The patient tolerated the surgical procedure without complication and was transferred to recovery. I attest to the content of the Intraoperative Record and any orders documented therein. Any exception s are noted below.
== END 2020-03-28 13:34 | disposition home or self-care (01) ==
LOC: ED 16:41 → OR 22:45 → 3E 22:45